=== PATIENT | female | born 2000 | race Two or more races ===

== ENCOUNTER 2022-09-28 23:41 | Emergency (ER) | payer OTHER ==
[~2022-09-28] VITALS: Ht 154.9 cm; Wt 97.5 kg
== END 2022-09-29 03:12 | disposition home or self-care (01) ==
LOC: ER 23:41
DX: S90.112A Contusion of left great toe without damage to nail, initial encounter (principal); X58.XXXA Exposure to other specified factors, initial encounter; Y93.9 Activity, unspecified; Y92.9 Unspecified place or not applicable; Y99.9 Unspecified external cause status